=== PATIENT | female | born 1960 | race Caucasian/White ===

== ENCOUNTER 2019-09-29 12:57 | Emergency (ER) | payer BC, SELFPAY ==
[2019-09-29 13:21] VITALS: BP 135/64; PULSE 85; RESP 20; TEMP 36.8; O2SAT 97; BMI 26.4
--- NOTE | 2019-09-29 13:29 | HMH.EDUTC ---
[facility] [place] Clinical Impression: Viral syndrome Disposition: Home, Self-Care Condition on Discharge: Good Instructions: DI for Viral Syndrome, Preventing the Spread of Coronavirus Discharge Instructions Additional Instructions: Drink plenty of fluids. Take tylenol or ibuprofen for pain or fever. Follow up with your regular doctor. GO TO THE ER FOR ANY WORSENING SYMPTOMS FOLLOW THE DIRECTIONS ON THE COVID-19 HAND OUT THAT WE GAVE YOU REGARDING SELF-ISOLATION UNTIL YOU KNOW YOUR COVID-19 RESULTS Referrals: PCP,No [Primary Care Provider] - Forms: Work/School Release Time of Disposition: 13:32 Medical Decision Making - Medical Records Medical records reviewed: No: I reviewed the patient's medical records. - Carlos Alberto Inquiry Pt receiving controlled substance: No Vital Signs: 09/29/19 13:21 09/29/19 13:30 Temperature 98.2 F 98.2 F Temperature Source Oral Pulse Rate 85 Pulse Rate [Right Brachial] 85 Respiratory Rate 20 20 Blood Pressure 135/64 Blood Pressure [Right Arm] 135/64 Blood Pressure Mean [Right Arm] 87 Blood Pressure Source [Right Arm] Automatic Cuff Blood Pressure Position [Right Arm] Sitting 02 Sat by Pulse Oximetry 97 Oxygen Delivery Method Room Air - Lab Data Lab results reviewed: Yes: I reviewed the patient's lab results. Orders (Tests/Meds): ORDERS Category Date Time Status SARS-CoV-2, ISHMAEL ([place]) Stat Lab 09/29/19 13:25 Received [facility] [place] - General Stated complaint: request covid test Time Seen by Provider: 09/29/19 13:29 Mode of Arrival: Ambulatory Source of Information: Patient Limitations: No Limitations Description of Symptoms (Recalled from Triage Doc. by RN): PATIENT C/O NAUSEA, LETHARGY, AND NASAL/THROAT CONGESTION SINCE MONDAY NIGHT. DENIES FEVER, COUGH, OR ANY KNOWN SICK CONTACTS. REQUESTING COVID TEST HEENT Symptoms (Recalled from RN notes): Yes Resp Symptoms (Recalled from RN notes): No Skin Symptoms (Recalled from RN notes): No MS Symptoms (Recalled from RN notes): No Functional Status (Recalled from RN notes): WNL - History of Present Illness Provider Complaint: She reports a mild dry cough. She request to be tested for COVID-19. She denies any known exposure to COVID. She denies any fever, but she has also had some nausea at times over the past 2 days. - Related Data Home Medications Medication Instructions Recorded Confirmed Atorvastatin Calcium [Lipitor 40mg 40 mg PO HS 09/29/19 09/29/19 Tab] Budesonide [Pulmicort Flexhaler] 1 spray IH DAILY 09/29/19 09/29/19 Fluticasone Propionate [Flonase 2 spr NS DAILY 09/29/19 09/29/19 50mcg nasal spray 16gm] Loratadine [Claritin 10mg 10 mg PO DAILY 09/29/19 09/29/19 Tablet] Metformin HCl [Metformin HCl ER] 500 mg PO BID 09/29/19 09/29/19 Montelukast Sodium [Singulair 10mg 10 mg PO PM 09/29/19 09/29/19 tablet] Allergies Allergy/AdvReac Type Severity Reaction Status Date / Time No Known Allergies Allergy Verified 09/29/19 13:27 - Worker's Comp Is this a Worker's Comp case?: No [facility] History - Hepatitis A Screen Drug use history?: No High risk sexual behaviors?: No History of sexually transmitted infection?: No Currently employed?: No Childcare worker?: No Do you have indoor plumbing?: Yes Do you have electricity?: Yes Attestation statement:: This patient has been screened for Hepatitis A risk factors. I have reviewed the patient's past medical history: Yes Medical History: Reports:: Diabetes Mellitus Type 2 Laterality Cases: Bilateral: Tonsillectomy - Social History Alcohol Intake: never Occupational Status: other ROS Obtained: Yes All systems reviewed & no additional complaints - Constitutional Constitutional: Reports chills, Denies fever(s), Reports poor appetite, Reports malaise - Eyes Eyes: Denies eye discharge - ENT Ears, Nose, Mouth, and Throat: Reports as per HPI - Cardiovascular Cardiovascular: Denies chest pain -
[2019-09-29 13:30] VITALS: BP 135/64; PULSE 85; RESP 20; TEMP 36.8; O2SAT 97
[2019-09-30 08:38] LABS: Covid-19 Nasal PCR Sendout UK NOT DETECTED
== END 2019-09-29 13:35 | disposition home or self-care (01) ==
PROVIDERS: Emergency Provider Nurse Practitioner Family; PCP Family Medicine
DX: B34.9 Viral infection, unspecified (principal); Z03.818 Encounter for observation for suspected exposure to other biological agents ruled out
CPT/HCPCS: 36415; 99201; U0003

== ENCOUNTER 2019-12-09 13:48 | Emergency (ER) | payer BC, SELFPAY ==
[2019-12-09 14:17] VITALS: BP 142/90; PULSE 76; RESP 20; TEMP 36.9; O2SAT 98; BMI 27.3
[2019-12-09 14:18] LABS: Apearance,Urine Clear (Clear); Color,Urine Yellow (Yellow)
[2019-12-09 14:19] LABS: Bilirubin,Urine Negative (Negative); Blood, Urine Negative (Negative); Glucose,Urine (UA) Negative (Negative); Ketones,Urine Negative (Negative); PH,Urine 5.5 (5.0-8.5); Protein,Urine Negative (Negative); Specific Gravity, Urine 1.025 (1.005-1.030); UTC Leukocyte Esterase,Urine 1+ (Negative); UTC Nitrate,Urine Negative (Negative); Urobilinogen,Urine 0.2 EU/dl (0.2)
--- NOTE | 2019-12-09 14:26 | HMH.EDUTC ---
[facility] [place] Clinical Impression: UTI (urinary tract infection) Qualifiers: Urinary tract infection type: site unspecified Hematuria presence: without hematuria Qualified Code(s): N39.0 - Urinary tract infection, site not specified Disposition: Home, Self-Care Condition on Discharge: Good Instructions: Urinary Tract Infection, DI for Urinary Tract Infection (UTI), Nitrofurantoin Additional Instructions: *Increase fluids. Water not Soda or Tea *Start antibiotic immediately and be sure to take as ordered for the FULL length of time although you should start to see improvement over the next 48 hours *Pyridium as needed Remember this medication will turn your urine [place]. This is normal but it will stain what ever it gets on *You should not use Pyridium for more than 48 hours. If so , follow up with your primary physician to review urine culture and ensure that antibiotic is adequate for infection *Be SURE to follow up anytime for new or worsening symptoms with your family doctor. AND in 48 hours for urine culture results with your family doctor, if you do not have a doctor then you may call back to the [facility] for urine culture results and further treatment. We do recommend that you choose and establish care with a Primary Care Physician. AND follow up with them in 10-14 days to repeat UA to ensure infection is resolved and blood no longer present *Be sure to let your PCP know that we sent urine cultures from the [facility] so they can follow up to ensure that you area the on the correct antibiotic Call your doctor office and make appointment for 48 hours (2 days from today) to follow up and get the results of your urine culture and further treatment Follow up as directed Prescriptions: Nitrofurantoin Monohyd/M-Cryst [Macrobid 100 mg Capsule] 100 mg PO BID 10 Days #20 cap Transmission Status: Pending to [facility] # Phenazopyridine HCl [Pyridium 200mg Tablet] 200 pow PO TID #6 tab Transmission Status: Pending to [facility] # Referrals: Maria G Crawford MD [Primary Care Provider] - As needed Time of Disposition: 14:30 Medical Decision Making - Carlos Alberto Inquiry Pt receiving controlled substance: No Carlos Alberto was queried for this patient: No Vital Signs: 12/09/19 14:17 Temperature 98.4 F Temperature Source Oral Pulse Rate [Left Brachial] 76 Respiratory Rate 20 Blood Pressure [Left Arm] 142/90 H Blood Pressure Mean [Left Arm] 107 Blood Pressure Source [Left Arm] Automatic Cuff Blood Pressure Position [Left Arm] Sitting 02 Sat by Pulse Oximetry 98 Oxygen Delivery Method Room Air - Lab Data Lab results reviewed: Yes: I reviewed the patient's lab results. Lab Results 12/09/19 14:02: Urine Color Yellow, Urine Appearance Clear, Urine pH 5.5, Ur Specific Mcewen 1.025, Urine Protein Negative, Urine Glucose (UA) Negative, Urine Ketones Negative, Urine Blood Negative, Urine Nitrate Negative, Urine Bilirubin Negative, Urine Urobilinogen 0.2, Ur Leukocyte Esterase 1+ A [facility] [place] - General Stated complaint: burning,frequency Time Seen by Provider: 12/09/19 14:26 Mode of Arrival: Ambulatory Source of Information: Patient Limitations: No Limitations Description of Symptoms (Recalled from Triage Doc. by RN): PATIENT C/O SILVIA-AREA IRRITATION WITH FREQUENT URINATION X 1 WEEK HEENT Symptoms (Recalled from RN notes): No Resp Symptoms (Recalled from RN notes): No Skin Symptoms (Recalled from RN notes): No MS Symptoms (Recalled from RN notes): No Functional Status (Recalled from RN notes): WNL - History of Present Illness Provider Complaint: Patient states that he has been having burning with urination for about a week States that she took some over the counter azo and it helped for a few days but now symptoms are back and she knew she probably needed antibiotics so she came in to get checked out - Related Data Home Medications Medication Instructions Recorded Confirmed Atorvastatin Calcium
[2019-12-09 14:34] VITALS: BP 142/90; PULSE 76; RESP 20; TEMP 36.9; O2SAT 98
== END 2019-12-09 14:38 | disposition home or self-care (01) ==
PROVIDERS: Emergency Provider Nurse Practitioner; PCP Family Medicine
DX: N30.00 Acute cystitis without hematuria (principal); E11.9 Type 2 diabetes mellitus without complications; Z79.84 Long term (current) use of oral hypoglycemic drugs
CPT/HCPCS: 81003; 87086; 87088; 87186; 99201

== ENCOUNTER 2020-11-12 09:17 | Emergency (ER) | payer BC, SELFPAY ==
[2020-11-12 09:40] VITALS: BP 149/87; PULSE 94; RESP 18; TEMP 36.9; O2SAT 99; BMI 27.8
--- NOTE | 2020-11-12 10:21 | HMH.EDUTC ---
[facility] [place] Clinical Impression: Viral syndrome, Exposure to COVID-19 virus Disposition: Home, Self-Care Condition on Discharge: Good Instructions: DI for COVID-19 (Suspected or Confirmed ), Preventing the Spread of Coronavirus Discharge Instructions Additional Instructions: Drink plenty of fluids. Take tylenol for pain or fever. Return if you begin to have difficulty breathing. Follow up with your regular doctor. GO TO THE ER FOR ANY WORSENING SYMPTOMS Quarantine until you know the results of your covid-19 test. If it is positive, the health department should call you and give you further instructions about your length of Quarantine and other things. Notify your school or workplace of your results and follow their instructions regarding return to work/school. Referrals: Maria G Crawford MD [Primary Care Provider] - Time of Disposition: 10:24 Medical Decision Making - Medical Records Medical records reviewed: No: I reviewed the patient's medical records. - Carlos Alberto Inquiry Pt receiving controlled substance: No Vital Signs: 11/12/20 09:40 11/12/20 10:39 Temperature 98.4 F 98.4 F Temperature Source Oral Pulse Rate 94 H Pulse Rate [Right Brachial] 94 H Respiratory Rate 18 18 Blood Pressure 149/87 H Blood Pressure [Right Arm] 149/87 H Blood Pressure Mean [Right Arm] 107 Blood Pressure Source [Right Arm] Automatic Cuff Blood Pressure Position [Right Arm] Sitting 02 Sat by Pulse Oximetry 99 Oxygen Delivery Method Room Air [facility] [place] - General Stated complaint: covid test/sympoms Time Seen by Provider: 11/12/20 10:21 Mode of Arrival: Ambulatory Source of Information: Patient Limitations: No Limitations Description of Symptoms (Recalled from Triage Doc. by RN): PATIENT C/O COUGH, SINUS PRESSURE, SCRATCHY THROAT SINCE MONDAY. POSSIBLE SECONDARY EXPOSURE HEENT Symptoms (Recalled from RN notes): Yes Resp Symptoms (Recalled from RN notes): No Skin Symptoms (Recalled from RN notes): No MS Symptoms (Recalled from RN notes): No Functional Status (Recalled from RN notes): WNL - History of Present Illness Provider Complaint: She has been vaccinated against covid-19. she was exposed to at a [employer]. - Related Data Home Medications Medication Instructions Recorded Confirmed Atorvastatin Calcium [Lipitor 40mg 40 mg PO HS 09/29/19 12/09/19 Tab] Metformin HCl [Metformin HCl ER] 500 mg PO BID 09/29/19 12/09/19 Pantoprazole Sodium 20 mg PO DAILY 12/09/19 12/09/19 Previous Rx's Medication Instructions Recorded Nitrofurantoin Monohyd/M-Cryst 100 mg PO BID 10 Days #20 cap 12/09/19 [Macrobid 100 mg Capsule] Phenazopyridine HCl [Pyridium 200 pow PO TID #6 tab 12/09/19 200mg Tablet] Allergies Allergy/AdvReac Type Severity Reaction Status Date / Time No Known Allergies Allergy Verified 09/29/19 13:27 - Worker's Comp Is this a Worker's Comp case?: No [facility] History - Hepatitis A Screen Drug use history?: No High risk sexual behaviors?: No History of sexually transmitted infection?: No Currently employed?: No Childcare worker?: No Do you have indoor plumbing?: Yes Do you have electricity?: Yes Attestation statement:: This patient has been screened for Hepatitis A risk factors. I have reviewed the patient's past medical history: Yes Medical History: Reports:: Diabetes Mellitus Type 2 Laterality Cases: Bilateral: Tonsillectomy - Social History Alcohol Intake: never Occupational Status: other ROS Obtained: Yes All systems reviewed & no additional complaints - Constitutional Constitutional: Reports system reviewed and no additional complaints, except as docu - Eyes Eyes: Reports system reviewed and no additional complaints, except as docu - ENT Ears, Nose, Mouth, and Throat: Reports system reviewed and no additional complaints, except as docu - Cardiovascular Cardiovascular: Reports system reviewed and no additional compl
[2020-11-12 10:39] VITALS: BP 149/87; PULSE 94; RESP 18; TEMP 36.9; O2SAT 99
== END 2020-11-12 10:40 | disposition home or self-care (01) ==
PROVIDERS: Emergency Provider Nurse Practitioner Family; PCP Family Medicine
DX: B34.9 Viral infection, unspecified (principal); Z20.822 Contact with and (suspected) exposure to COVID-19
CPT/HCPCS: 99202; G0463; U0003

== ENCOUNTER 2020-12-23 09:01 | Emergency (ER) | payer BC, SELFPAY ==
[2020-12-23 09:26] VITALS: BP 157/76; PULSE 81; RESP 19; TEMP 36.8; O2SAT 98; BMI 27.6
[2020-12-23 09:32] VITALS: BP 157/76; PULSE 81; RESP 16; TEMP 36.8
--- NOTE | 2020-12-23 09:40 | HMH.EDUTC ---
[facility] [place]ression: Sinusitis Qualifiers: Sinusitis location: unspecified location Chronicity: acute Recurrence: non-recurrent Qualified Code(s): J01.90 - Acute sinusitis, unspecified Left otitis media Qualifiers: Otitis media type: suppurative Chronicity: acute Recurrence: non-recurrent Spontaneous tympanic membrane rupture: without spontaneous rupture Qualified Code(s): H66.002 - Acute suppurative otitis media without spontaneous rupture of ear drum, left ear Disposition: Home, Self-Care Condition on Discharge: Good Instructions: Sinusitis, DI for Sinusitis, Preventing the Spread of Coronavirus Discharge Instructions Additional Instructions: Drink plenty of fluids. Take tylenol or ibuprofen for pain or fever. Take the medications as directed. Follow up with your regular doctor. GO TO THE ER FOR ANY WORSENING SYMPTOMS Quarantine until you know the results of your covid-19 test. If it is positive, the health department should call you and give you further instructions about your length of Quarantine and other things. Notify your school or workplace of your results and follow their instructions regarding return to work/school. Prescriptions: methylPREDNISolone [Medrol] 4 mg PO DIRECTED 6 Days #21 packet Transmission Status: Received by [facility] # Benzonatate [Tessalon Perle 100mg Cap] 100 mg PO TIDP PRN #30 cap PRN Reason: Cough Transmission Status: Received by [facility] # Azithromycin [Z-David 250mg Tab*] 250 mg PO UD DOSE PK #6 tab Transmission Status: Received by [facility] # Referrals: Maria G Crawford MD [Primary Care Provider] - Forms: Work/School Release Time of Disposition: 10:43 Medical Decision Making - Medical Records Medical records reviewed: No: I reviewed the patient's medical records. - Carlos Alberto Inquiry Pt receiving controlled substance: No Vital Signs: 12/23/20 09:26 12/23/20 09:32 Temperature 98.2 F 98.2 F Temperature Source Oral Pulse Rate 81 Pulse Rate [Left] 81 Respiratory Rate 19 16 Blood Pressure 157/76 H Blood Pressure [Right Arm] 157/76 H Blood Pressure Mean [Right Arm] 103 02 Sat by Pulse Oximetry 98 Orders (Tests/Meds): ED MEDICATIONS Discontinued Medications Generic Name Dose Route Start Last Admin Trade Name Freq PRN Reason Stop Dose Admin Ceftriaxone Sodium 1 gm 12/23/20 09:56 12/23/20 10:04 Ceftriaxone 1gm Vial IM 12/23/20 09:57 1 gm ONCE ONE Administration Lidocaine HCl 0 ml 12/23/20 09:56 12/23/20 10:04 Lidocaine 1% 5ml Pf Vial IM 12/23/20 09:57 2.5 ml ONCE ONE Administration Methylprednisolone Sodium Succinate 125 mg 12/23/20 09:56 12/23/20 10:04 Methylprednisolone Sod Succ 125mg Vial IM 12/23/20 09:57 125 mg ONCE ONE Administration [facility] [place] - General Stated complaint: covid symptoms/possible sinus infection Time Seen by Provider: 12/23/20 09:40 Mode of Arrival: Ambulatory Source of Information: Patient Limitations: No Limitations Description of Symptoms (Recalled from Triage Doc. by RN): pt thinks she has a sinus infection. pt is having facial pain and pressure predominantly on the L side. HEENT Symptoms (Recalled from RN notes): Yes (facial pain/pressure) Resp Symptoms (Recalled from RN notes): No Skin Symptoms (Recalled from RN notes): No MS Symptoms (Recalled from RN notes): No Functional Status (Recalled from RN notes): na - History of Present Illness Provider Complaint: She c/o left sided facial pressure, puffiness below her left eye, left ear pain and soreness of the left side of her throat for the past 1 week. He has post nasal drainage also and a mild cough, but no shortness of breath or chest pain. - Related Data Home Medications Medication Instructions Recorded Confirmed Atorvastatin Calcium [Lipitor 40mg 40 mg PO HS 09/29/19 12/09/19 Tab] Metformin HCl [Metformin HCl ER] 500 mg PO B
== END 2020-12-23 10:54 | disposition home or self-care (01) ==
PROVIDERS: Emergency Provider Nurse Practitioner Family; PCP Family Medicine
DX: J01.90 Acute sinusitis, unspecified (principal); U07.1 COVID-19; H66.002 Acute suppurative otitis media without spontaneous rupture of ear drum, left ear; E11.9 Type 2 diabetes mellitus without complications
CPT/HCPCS: 96372; 99202; C9803; G0463; U0003; U0005

== ENCOUNTER 2021-04-19 09:52 | Emergency (ER) | payer BC, SELFPAY ==
[2021-04-19 09:53] VITALS: BP 140/80; PULSE 95; RESP 14; TEMP 36.8; O2SAT 97; BMI 27.8
--- NOTE | 2021-04-19 09:56 | XR_ITS ---
FINAL REPORT CLINICAL HISTORY: fall, LT KNEE PAIN FINDINGS: LEFT KNEE: Three views of the left knee were obtained. There is no acute fracture or dislocation. Visualized joint spaces are normally aligned. There is no joint effusion. Soft tissues are unremarkable. IMPRESSION: No acute bony abnormality. Reviewed, Interpreted and Dictated by Bassem Cohen III, MD Transcribed by Cornelius Pena Authenticated by Bassem Cohen III, MD on 04/19/2021 11:28:24 AM [facility]
--- NOTE | 2021-04-19 10:58 | HMH.EDGENADL ---
ED Disposition Clinical Impression: Left knee sprain Qualifiers: Encounter type: initial encounter Involved ligament of knee: other ligament Qualified Code(s): S83.8X2A - Sprain of other specified parts of left knee, initial encounter Disposition: Home, Self-Care Condition on Discharge: Good Additional Instructions: follow up Ortho if not better Referrals: Maria G Crawford MD [Primary Care Provider] - - Critical Care Critical Care Time: No Attestation: On 04/19/21, the high probability of a clinically significant, sudden or life threatening deterioration of the following system(s) required my full and direct attention, intervention and personal management. The time I documented below is in addition to time spent performing reported procedures but includes the following listed in this critical care notation. Medical Decision Making - Medical Records Medical records reviewed: Yes: I reviewed the patient's medical records. - Carlos Alberto Inquiry Pt receiving controlled substance: No Vital Signs: 04/19/21 09:53 04/19/21 11:04 Temperature 98.2 F Temperature Source Oral Pulse Rate 90 Pulse Rate [Right Radial] 95 H Respiratory Rate 14 Blood Pressure 144/80 H Blood Pressure [Right Arm] 140/80 Blood Pressure Mean [Right Arm] 100 Blood Pressure Source Automatic Cuff Blood Pressure Source [Right Arm] Automatic Cuff Blood Pressure Position Sitting Blood Pressure Position [Right Arm] Sitting 02 Sat by Pulse Oximetry 97 96 Oxygen Delivery Method Room Air Room Air Orders (Tests/Meds): ORDERS Category Date Time Status Knee XR left 3 views [XR knee LT 3V] Stat Exams 04/19/21 09:56 Taken General Adult HPI - General Chief complaint: PAIN Stated complaint: AO fall 2/6 lt knee injury Time Seen by Provider: 04/19/21 10:40 Mode of Arrival: Ambulatory Limitations: No Limitations Description of Symptoms (Recalled from ER Triage Doc. by RN): Pt c/o Lt knee pain following a fall on ice last night approx 2129 - History of Present Illness HPI narrative: left knee pain twisting injury yesterday Onset (ago): day(s) Radiation: non-radiation Severity: moderate Consistency: constant Relieving factors: immobilization Exacerbating factors: movement Associated symptoms: denies other symptoms - Related Data Home Medications Medication Instructions Recorded Confirmed Atorvastatin Calcium [Lipitor 40mg 40 mg PO HS 09/29/19 12/09/19 Tab] Metformin HCl [Metformin HCl ER] 500 mg PO BID 09/29/19 12/09/19 Pantoprazole Sodium 20 mg PO DAILY 12/09/19 12/09/19 Previous Rx's Medication Instructions Recorded Nitrofurantoin Monohyd/M-Cryst 100 mg PO BID 10 Days #20 cap 12/09/19 [Macrobid 100 mg Capsule] Phenazopyridine HCl [Pyridium 200 pow PO TID #6 tab 12/09/19 200mg Tablet] Azithromycin [Z-David 250mg Tab*] 250 mg PO UD DOSE PK #6 tab 12/23/20 Benzonatate [Tessalon Perle 100mg 100 mg PO TIDP PRN #30 cap 12/23/20 Cap] methylPREDNISolone [Medrol] 4 mg PO DIRECTED 6 Days #21 12/23/20 packet Allergies Allergy/AdvReac Type Severity Reaction Status Date / Time No Known Allergies Allergy Verified 09/29/19 13:27 [facility] History - Hepatitis A Screen Drug use history?: No High risk sexual behaviors?: No History of sexually transmitted infection?: No Currently employed?: No Childcare worker?: No Do you have indoor plumbing?: Yes Do you have electricity?: Yes Attestation statement:: This patient has been screened for Hepatitis A risk factors. Medical History: Reports:: Diabetes Mellitus Type 2 Laterality Cases: Bilateral: Tonsillectomy - Social History Alcohol Intake: never Occupational Status: other ROS Obtained: Yes All systems reviewed & no additional complaints Physical Exam - General General appearance: alert, in no apparent distress - Respiratory Respiratory exam: Present: normal lung sounds bilaterally. Absent: respiratory distress, wheezes - Car
[2021-04-19 11:04] VITALS: BP 144/80; PULSE 90; O2SAT 96
[2021-04-19 11:36] VITALS: BP 144/80; PULSE 90; RESP 14; TEMP 36.8; O2SAT 97
== END 2021-04-19 11:38 | disposition home or self-care (01) ==
PROVIDERS: Emergency Provider Emergency Medicine; PCP Family Medicine
DX: S83.8X2A Sprain of other specified parts of left knee, initial encounter (principal); E11.9 Type 2 diabetes mellitus without complications; Z79.899 Other long term (current) drug therapy; Z79.84 Long term (current) use of oral hypoglycemic drugs; W00.0XXA Fall on same level due to ice and snow, initial encounter
CPT/HCPCS: 73562; 99282

== ENCOUNTER 2021-06-03 09:00 | Emergency (ER) | payer SELFPAY ==
[2021-06-03 09:10] VITALS: BP 129/78; PULSE 86; RESP 18; TEMP 36.8; O2SAT 98; BMI 26.6
[2021-06-03 09:43] VITALS: BP 129/78; PULSE 86; RESP 18; TEMP 36.8; O2SAT 98
--- NOTE | 2021-06-03 09:47 | HMH.EDUTC ---
[facility] [place] Clinical Impression: Diarrhea Qualifiers: Diarrhea type: unspecified type Qualified Code(s): R19.7 - Diarrhea, unspecified Disposition: Home, Self-Care Condition on Discharge: Good Instructions: Diarrhea (Alternative Therapy), Diarrhea Additional Instructions: Drink extra fluids with and between meals. If you have difficulty drinking, try very small amounts of water or suck on ice chips. ? Avoid fruit juices, as these do not replace minerals and can actually increase diarrhea. ? Children and adults can use sports drinks to replenish electrolytes. Younger children and infants should use products formulated for children, like oral rehydration solutions. ? Eat food in small amounts and let your stomach recover. ? Get lots of rest. You may feel tired or weak. ? No greasy or fried foods for the next 24-48 hours BRAT diet Bananas Rice Apples and [place] ? Make sure to drink plenty of liquids ? Return if needed ? Straight to ER if any life threatening symptoms ? You was given an outpatient order for diarrhea panel, please collect specimen and bring back to outpatient lab then call back to the [facility] or follow up with family doctor for results ? Follow up with family doctor in the next 48-72 hours if no improvement or any worsening of symptoms Referrals: Maria G Crawford MD [Primary Care Provider] - As needed Forms: Work/School Release Medical Decision Making - Carlos Alberto Inquiry Pt receiving controlled substance: No Carlos Alberto was queried for this patient: No Vital Signs: 06/03/21 09:10 06/03/21 09:43 Temperature 98.3 F 98.3 F Temperature Source Oral Pulse Rate 86 Pulse Rate [Right Brachial] 86 Respiratory Rate 18 18 Blood Pressure 129/78 Blood Pressure [Right Arm] 129/78 Blood Pressure Mean [Right Arm] 95 Blood Pressure Source [Right Arm] Automatic Cuff Blood Pressure Position [Right Arm] Sitting 02 Sat by Pulse Oximetry 98 Oxygen Delivery Method Room Air [facility] [place] - General Stated complaint: vomiting, diarrhea Time Seen by Provider: 06/03/21 09:48 Mode of Arrival: Ambulatory Source of Information: Patient Limitations: No Limitations Description of Symptoms (Recalled from Triage Doc. by RN): PATIENT C/O VOMITING AND DIARRHEA SINCE MONDAY HEENT Symptoms (Recalled from RN notes): No Resp Symptoms (Recalled from RN notes): No Skin Symptoms (Recalled from RN notes): No MS Symptoms (Recalled from RN notes): No Functional Status (Recalled from RN notes): WNL - History of Present Illness Provider Complaint: Patient state that she started on Monday with Vomiting and diarrhea States that Monday her vomiting stopped but she has continued to have diarrhea States that she took Immodium yesterday and it helped some with diarrhea but then this morning as she got up to get ready for work she was having some diarrhea again so she came in - Related Data Home Medications Medication Instructions Recorded Confirmed Atorvastatin Calcium [Lipitor 40mg 40 mg PO HS 09/29/19 12/09/19 Tab] Metformin HCl [Metformin HCl ER] 500 mg PO BID 09/29/19 12/09/19 Pantoprazole Sodium 20 mg PO DAILY 12/09/19 12/09/19 Previous Rx's Medication Instructions Recorded Nitrofurantoin Monohyd/M-Cryst 100 mg PO BID 10 Days #20 cap 12/09/19 [Macrobid 100 mg Capsule] Phenazopyridine HCl [Pyridium 200 pow PO TID #6 tab 12/09/19 200mg Tablet] Azithromycin [Z-David 250mg Tab*] 250 mg PO UD DOSE PK #6 tab 12/23/20 Benzonatate [Tessalon Perle 100mg 100 mg PO TIDP PRN #30 cap 12/23/20 Cap] methylPREDNISolone [Medrol] 4 mg PO DIRECTED 6 Days #21 12/23/20 packet Allergies Allergy/AdvReac Type Severity Reaction Status Date / Time No Known Allergies Allergy Verified 09/29/19 13:27 - Worker's Comp Is this a Worker's Comp case?: No [facility] History - Hepatitis A Screen Drug use history?: No High risk sexual behaviors?: No History of sexually transmitted infection?: No Currently employed?: No [employer]
== END 2021-06-03 09:50 | disposition home or self-care (01) ==
PROVIDERS: Emergency Provider Nurse Practitioner; PCP Family Medicine
DX: R19.7 Diarrhea, unspecified (principal); R11.10 Vomiting, unspecified; E11.9 Type 2 diabetes mellitus without complications; Z79.52 Long term (current) use of systemic steroids; Z79.84 Long term (current) use of oral hypoglycemic drugs; Z79.899 Other long term (current) drug therapy
CPT/HCPCS: 99212; G0463

== ENCOUNTER 2021-07-04 09:33 | Emergency (ER) | payer OTHER, SELFPAY ==
[2021-07-04 10:14] VITALS: BP 143/68; PULSE 95; RESP 20; TEMP 37.2; O2SAT 96; BMI 28.5
--- NOTE | 2021-07-04 10:36 | HMH.EDUTC ---
[facility] [place] Impression: Sinusitis Qualifiers: Sinusitis location: frontal Chronicity: acute Recurrence: non-recurrent Qualified Code(s): J01.10 - Acute frontal sinusitis, unspecified Disposition: Home, Self-Care Condition on Discharge: Good Instructions: DI for Sinusitis Additional Instructions: Drink plenty of fluids. Take tylenol or ibuprofen for pain or fever. Take the medications as directed. Follow up with your regular doctor. GO TO THE ER FOR ANY WORSENING SYMPTOMS Prescriptions: methylPREDNISolone [Medrol] 4 mg PO DIRECTED 6 Days #21 packet Transmission Status: Received by [id number] Azithromycin [Z-David 250mg Tab*] 250 mg PO UD DOSE PK #6 tab Transmission Status: Received by [id number] Referrals: Provider,Referral, [Primary Care Provider] - Time of Disposition: 11:12 Medical Decision Making - Medical Records Medical records reviewed: No: I reviewed the patient's medical records. - Carlos Alberto Inquiry Pt receiving controlled substance: No Vital Signs: 07/04/21 10:14 07/04/21 11:12 Temperature 98.9 F 98.9 F Temperature Source Oral Pulse Rate 95 H Pulse Rate [Left] 95 H Respiratory Rate 20 20 Blood Pressure 143/68 H Blood Pressure [Right Arm] 143/68 H Blood Pressure Mean [Right Arm] 93 02 Sat by Pulse Oximetry 96 - Lab Data Lab results reviewed: Yes: I reviewed the patient's lab results. Lab Results 07/04/21 10:19: Group A Strep Rapid Negative Orders (Tests/Meds): ORDERS Category Date Time Status Strep Screen Confirmation Stat Micro 07/04/21 10:19 [place] [facility] [place] - General Stated complaint: sore throat, ear pain, chest congestion Time Seen by Provider: 07/04/21 10:36 Mode of Arrival: Ambulatory Source of Information: Patient Limitations: No Limitations Description of Symptoms (Recalled from Triage Doc. by RN): pt c/o a sore throat, bilateral ear pain, chest congetsion and a productive cough with green/yellow sputum. x1wk HEENT Symptoms (Recalled from RN notes): Yes Resp Symptoms (Recalled from RN notes): Yes Skin Symptoms (Recalled from RN notes): No MS Symptoms (Recalled from RN notes): No Functional Status (Recalled from RN notes): wnl - History of Present Illness Provider Complaint: She c/o 3 days or worsening sinus congestion. She has had chilling but no documented fever. - Related Data Home Medications Medication Instructions Recorded Confirmed Atorvastatin Calcium [Lipitor 40mg 40 mg PO HS 09/29/19 12/09/19 Tab] Metformin HCl [Metformin HCl ER] 500 mg PO BID 09/29/19 12/09/19 Pantoprazole Sodium 20 mg PO DAILY 12/09/19 12/09/19 Previous Rx's Medication Instructions Recorded Nitrofurantoin Monohyd/M-Cryst 100 mg PO BID 10 Days #20 cap 12/09/19 [Macrobid 100 mg Capsule] Phenazopyridine HCl [Pyridium 200 pow PO TID #6 tab 12/09/19 200mg Tablet] Azithromycin [Z-David 250mg Tab*] 250 mg PO UD DOSE PK #6 tab 12/23/20 Benzonatate [Tessalon Perle 100mg 100 mg PO TIDP PRN #30 cap 12/23/20 Cap] methylPREDNISolone [Medrol] 4 mg PO DIRECTED 6 Days #21 12/23/20 packet Azithromycin [Z-David 250mg Tab*] 250 mg PO UD DOSE PK #6 tab 07/04/21 methylPREDNISolone [Medrol] 4 mg PO DIRECTED 6 Days #21 07/04/21 packet Allergies Allergy/AdvReac Type Severity Reaction Status Date / Time amoxicillin [From Augmentin] Allergy Verified 07/04/21 10:24 clavulanic acid Allergy Verified 07/04/21 10:24 [From Augmentin] risedronate sodium Allergy Verified 07/04/21 10:24 [From Actonel] - Worker's Comp Is this a Worker's Comp case?: No [facility] History - Hepatitis A Screen Drug use history?: No High risk sexual behaviors?: No History of sexually transmitted infection?: No Currently employed?: No Childcare worker?: No Do you have indoor plumbing?: Yes Do you have electricity?: Yes Attestation statement:: This patient has been screened for Hepatitis A risk fac
[2021-07-04 10:41] LABS: Strep Scrn Group A (Rapid) Negative (Negative)
[2021-07-04 11:12] VITALS: BP 143/68; PULSE 95; RESP 20; TEMP 37.2
== END 2021-07-04 11:17 | disposition home or self-care (01) ==
PROVIDERS: Emergency Provider Nurse Practitioner Family
DX: J01.10 Acute frontal sinusitis, unspecified (principal); E11.9 Type 2 diabetes mellitus without complications
CPT/HCPCS: 87430; 99212; G0463

== ENCOUNTER 2021-08-09 11:58 | Emergency (ER) | payer OTHER, SELFPAY ==
--- NOTE | 2021-08-09 13:19 | HMH.EDGENADL ---
ED Disposition Clinical Impression: Right foot pain Disposition: Home, Self-Care Condition on Discharge: Good Referrals: Baldo Rolon MD [Primary Care Provider] - - Critical Care Critical Care Time: No Attestation: On , the high probability of a clinically significant, sudden or life threatening deterioration of the following system(s) required my full and direct attention, intervention and personal management. The time I documented below is in addition to time spent performing reported procedures but includes the following listed in this critical care notation. Medical Decision Making - Medical Records Medical records reviewed: Yes: I reviewed the patient's medical records. - Carlos Alberto Inquiry Pt receiving controlled substance: No Vital Signs: 08/09/21 13:25 08/09/21 14:00 08/09/21 14:30 Temperature 98.7 F Temperature Source Oral Pulse Rate 80 81 Pulse Rate [Right Radial] 89 Respiratory Rate 18 16 16 Blood Pressure 125/66 121/56 L Blood Pressure [Right Arm] 135/65 Blood Pressure Mean 89 77 Blood Pressure Mean [Right Arm] 88 Blood Pressure Source [Right Arm] Automatic Cuff Blood Pressure Position [Right Arm] Sitting 02 Sat by Pulse Oximetry 100 100 98 Oxygen Delivery Method Room Air - Lab Data Lab results reviewed: Yes: I reviewed the patient's lab results. Orders (Tests/Meds): ED MEDICATIONS Discontinued Medications Generic Name Dose Route Start Last Admin Trade Name Juan Aq PRN Reason Stop Dose Admin Acetaminophen 1,000 mg 08/09/21 13:57 08/09/21 14:08 Acetaminophen 500mg Tab PO 08/09/21 13:58 1,000 mg ONCE ONE Administration Oxycodone HCl 5 mg 08/09/21 13:58 08/09/21 14:09 Oxycodone 5mg Immediate Release Tablet PO 08/09/21 13:59 Not Given ONCE ONE Medical Decision Narrative: Patient is a 52-year-old female presenting with a chief complaint of right toe pain. Differential diagnosis includes, but is not limited to, fracture, dislocation, contusion, other. Initial exam, patient is hemodynamically stable nontoxic-appearing. She was evaluated with x-ray of the right foot and treated for pain with p.o. Tylenol and p.o. oxycodone. X-rays negative for acute findings. Presentation is consistent with contusion of the right toe. She was provided a walking boot for comfort, counseled on supportive care at home and discharged in stable condition. General Adult HPI - General Stated complaint: rt big toe pain Time Seen by Provider: 08/09/21 13:20 - History of Present Illness HPI narrative: Rose is a 60-year-old presenting with a chief complaint of right toe pain. Patient states she injured her foot yesterday evening. Her pain was relieved with Tylenol and she was able to sleep but continues to have pain, swelling and bruising today. Concern for underlying fracture. Did not fall, hit her head and does not report any other concerns or injuries. - Related Data Home Medications Medication Instructions Recorded Confirmed Atorvastatin Calcium [Lipitor 40mg 40 mg PO HS 09/29/19 12/09/19 Tab] Metformin HCl [Metformin HCl ER] 500 mg PO BID 09/29/19 12/09/19 Pantoprazole Sodium 20 mg PO DAILY 12/09/19 12/09/19 Previous Rx's Medication Instructions Recorded Nitrofurantoin Monohyd/M-Cryst 100 mg PO BID 10 Days #20 cap 12/09/19 [Macrobid 100 mg Capsule] Phenazopyridine HCl [Pyridium 200 pow PO TID #6 tab 12/09/19 200mg Tablet] Azithromycin [Z-David 250mg Tab*] 250 mg PO UD DOSE PK #6 tab 12/23/20 Benzonatate [Tessalon Perle 100mg 100 mg PO TIDP PRN #30 cap 12/23/20 Cap] methylPREDNISolone [Medrol] 4 mg PO DIRECTED 6 Days #21 12/23/20 packet Azithromycin [Z-David 250mg Tab*] 250 mg PO UD DOSE PK #6 tab 07/04/21 methylPREDNISolone [Medrol] 4 mg PO DIRECTED 6 Days #21 07/04/21 packet Allergies Allergy/AdvReac Type Severity Reaction Status Date / Time amoxicillin [From Augmentin] Allergy Verified 07/04/21 10:2
[2021-08-09 13:25] VITALS: BP 135/65; PULSE 89; RESP 18; TEMP 37.1; O2SAT 100; BMI 27.6
--- NOTE | 2021-08-09 13:37 | XR_ITS ---
PROCEDURE INFORMATION: Exam: XR Left Foot Exam date and time: 08/09/2021 1:50 PM Age: 60 years old Clinical indication: Pain; Foot; Right; Additional info: Tripped on sheet last night TECHNIQUE: Imaging protocol: XR Left foot. Views: 1 or 2 views. COMPARISON: CR XR KNEE LT 3V 04/19/2021 10:03 AM FINDINGS: Bones/joints: No evidence of acute osseous injury. Soft tissues: Mild soft tissue swelling dorsal aspect of the forefoot. IMPRESSION: No evidence of acute osseous injury.
--- NOTE | 2021-08-09 13:53 | PC.NURSE ---
rad at BS for portable xray
[2021-08-09 14:00] VITALS: BP 125/66; PULSE 80; RESP 16; O2SAT 100
[2021-08-09 14:30] VITALS: BP 121/56; PULSE 81; RESP 16; O2SAT 98
[2021-08-09 16:43] VITALS: BP 112/74; PULSE 65; RESP 16; TEMP 36.6; O2SAT 98
== END 2021-08-09 16:44 | disposition home or self-care (01) ==
PROVIDERS: Emergency Provider Emergency Medicine; PCP Internal Medicine Adolescent Medicine
DX: M79.674 Pain in right toe(s) (principal); M79.671 Pain in right foot; E11.9 Type 2 diabetes mellitus without complications; Z79.52 Long term (current) use of systemic steroids; Z79.84 Long term (current) use of oral hypoglycemic drugs; Z79.899 Other long term (current) drug therapy; Z88.0 Allergy status to penicillin; Z88.1 Allergy status to other antibiotic agents; Z88.3 Allergy status to other anti-infective agents; Z88.8 Allergy status to other drugs, medicaments and biological substances
CPT/HCPCS: 73620; 99283

== ENCOUNTER → 2022-06-15 10:39 | Outpatient (CLI) | payer OTHER, SELFPAY ==
[2022-06-15 11:38] LABS: Basophils # 0.1 K/mm3 (0-0.2); Basophils % 0.9 % (0.1-2.0); Eosinophils # 0.1 K/mm3 (0.0-0.4); Eosinophils % 0.6 % (0.1-12.0); Hemoglobin 12.9 g/dL (12.2-16.2); Lymphocytes # 3.9 K/mm3 (0.7-4.5); Mean Corpuscular HGB Conc 32.3 g/dL (31.8-35.4); Mean Corpuscular Hemoglobin 28.9 pg (27.0-31.2); Mean Corpuscular Volume 89.6 fl (81-99); Mean Platelet Volume 8.4 fl (7.4-10.4); Monocytes # 0.6 K/mm3 (0.1-1.0); Neutrophils # 5.5 K/mm3 (1.8-7.8); Neutrophils % 54.5 % (37.0-80.0); Platelet Count 363 K/mm3 (142-424); Red Blood Count 4.47 M/mm3 (4.20-5.40); Red Cell Distribution Width 13.9 % (11.5-17.5); White Blood Count 10.1 K/mm3 (4.8-10.8)
[2022-06-15 12:12] LABS: Chloride 100 mmol/L (98-107); Potassium 3.5 mmoL/L (3.5-5.1); Sodium 139 mmol/L (136-145)
[2022-06-15 12:34] LABS: Free T4 (Free Thyroxine) 0.97 ng/dl (0.78-2.19)
[2022-06-15 12:48] LABS: Thyroid Stimulating Hormone 1.88 uIU/mL (0.465-4.68)
[2022-06-15 12:52] LABS: Ferritin 16.5 ng/ml (11.1-264)
[2022-06-15 17:06] LABS: Alanine Aminotransferase 28 U/L (12-78); Albumin Level 4.2 g/dl (3.5-5.0); Albumin/Globulin Ratio 1.9 (1.1-1.8); Alkaline Phosphatase 78 U/L (38-126); Anion Gap 12.5 mEq/L (5-15); Aspartate Amino Transferase 25 U/L (14-36); Bilirubin,Total 0.4 mg/dl (0.2-1.3); Blood Urea Nitrogen 17 mg/dl (7-17); Carbon Dioxide 30 mmol/L (22.0-30.0); Estimated Glomerular Filt Rate 86 ml/min (>60); GFR (African American) 104 ML/MIN (>60); Globulin 2.2 g/dL (1.3-3.2); Glucose 89 mg/dl (74-100); Total Protein,Serum 6.4 g/dl (6.3-8.2)
[2022-06-15 17:15] LABS: Total Iron Binding Capacity 344 ug/dL (265-497)
[2022-06-15 18:15] LABS: Vitamin B12 850 pg/mL (239-931)
[2022-06-15 18:22] LABS: Folate > 20.00 ng/mL
[2022-06-15 21:22] LABS: Iron 74 ug/dL (37-170)
[2022-06-16 10:36] LABS: Sex Hormone Binding Globulin 25.9 nmol/L (17.3-125.0)
[2022-06-16 11:42] LABS: DHEA-Sulfate 15.3 ug/dL (29.4-220.5); Testosterone,Total <3 ng/dL (4-50)
[2022-06-17 04:13] LABS: Zinc 66 ug/dL (44-115)
[2022-06-19 03:58] LABS: Testosterone,Free 0.3 pg/mL (0.0-4.2)
== END ==
LOC: LAB 10:40
PROVIDERS: PCP Internal Medicine Adolescent Medicine; Visit Provider Nurse Practitioner Family
DX: L65.9 Nonscarring hair loss, unspecified (principal)
CPT/HCPCS: 36415; 80053; 82607; 82626; 82728; 82746; 83540; 83550; 84270; 84402; 84403; 84439; 84443; 84630; 85025

== ENCOUNTER → 2022-06-30 09:48 | Outpatient (CLI) | payer OTHER, SELFPAY ==
--- NOTE | 2022-06-30 09:53 | MM_ITS ---
PROCEDURE INFORMATION: Exam: MG Bilateral Screening 3D Mammography Exam date and time: 06/30/2022 9:53 AM Age: 61 years old Clinical indication: Screening mammogram TECHNIQUE: Imaging protocol: Bilateral Screening tomosynthesis and 2D mammography including computer-aided detection (CAD) when performed. COMPARISON: No relevant prior studies available. FINDINGS: MAMMOGRAPHY: Breast composition: There are scattered areas of fibroglandular density. Mass: None. Architectural distortion: No new or suspicious architectural distortion. Calcifications: No new or suspicious calcifications are present Asymmetric density: No new or suspicious asymmetric density is present Skin thickening: None. Axillary adenopathy: None. IMPRESSION: No mammographic evidence of malignancy. Recommend annual screening mammography unless otherwise clinically indicated. ASSESSMENT: BI-RADS category 1: Negative
== END ==
PROVIDERS: PCP Internal Medicine Adolescent Medicine; Visit Provider Nurse Practitioner Family
DX: Z12.31 Encounter for screening mammogram for malignant neoplasm of breast (principal)
CPT/HCPCS: 77063; 77067

== ENCOUNTER 2022-08-14 10:56 | Emergency (ER) | payer OTHER, SELFPAY ==
[2022-08-14 10:57] VITALS: BP 132/63; PULSE 94; RESP 18; TEMP 37.2; O2SAT 98; BMI 26.2
--- NOTE | 2022-08-14 11:14 | EXP.UTC ---
Discharge Plan Disposition Patient Disposition: Home, Self-Care Condition: Good Prescriptions Prescriptions: New diphenhydramine HCl [Diphenhydramine HCl] 25 mg capsule 25 mg PO Q6HP PRN (Reason: Itching) Qty: 30 0RF methylprednisolone 4 mg Tablets,Dose Pack 4 mg PO DIRECTED Qty: 21 0RF No Action azithromycin 250 MG tablet 250 mg PO UD DOSE PK Qty: 6 0RF Rx Instructions: Take two (2) tablets today, then one (1) tablet days #2 thru #5 benzonatate 100 MG capsule 100 mg PO TIDP PRN (Reason: Cough) Qty: 30 0RF methylprednisolone 4 MG tablets,dose pack 4 mg PO DIRECTED 6 Days Qty: 21 0RF azithromycin 250 MG tablet 250 mg PO UD DOSE PK Qty: 6 0RF Rx Instructions: Take two (2) tablets today, then one (1) tablet days #2 thru #5 methylprednisolone 4 MG tablets,dose pack 4 mg PO DIRECTED 6 Days Qty: 21 0RF atorvastatin 40 MG tablet 40 mg PO HS metformin 500 MG tablet extended release 24 hr 500 mg PO BID pantoprazole 20 mg tablet,delayed release (DR/EC) 20 mg PO DAILY Label Comments: TAKE 1 TABLET BY MOUTH DAILY phenazopyridine 200 MG tablet 200 pow PO TID Qty: 6 0RF nitrofurantoin monohyd/m-cryst 100 MG capsule 100 mg PO BID 10 Days Qty: 20 0RF Referrals Follow up/Referrals: Livan Borja MD [Primary Care Provider] - See instructions Activity Restrictions/Add. Instructions Additional Instructions/Restrictions: Try to identify and avoid contact with the offending substance. Don't start the oral steroids until tomorrow. The diphenhydramine (benedryl) will make you drowsy, so don't drive or operate heavy machinery after taking it. Follow up with your regular doctor. GO TO THE ER FOR ANY WORSENING SYMPTOMS OR CONCERNS Clinical Impressions Clinical Impression: Allergic reaction, Contact dermatitis Instructions Patient Instructions: DI for General Allergic Reactions, Methylprednisolone Injection Discharge ED Provider: Baldo Griffin [facility] General Stated complaint: rash Mode of Arrival: Ambulatory Source of Information: Patient Limitations: No Limitations Time Seen by Provider: 08/14/22 11:14 HEENT Symptoms (Recalled from RN notes): No Resp Symptoms (Recalled from RN notes): No Skin Symptoms (Recalled from RN notes): Yes MS Symptoms (Recalled from RN notes): No Functional Status (Recalled from RN notes): wnl History of Present Illness Provider Complaint: Patient states that she thinks she had an allgeric reation to sunblock. Complaint of rash and asthma problems. Related Data Home Medications Medication Instructions Recorded Confirmed atorvastatin 40 mg tablet 40 mg PO HS Cholesterol 09/29/19 12/09/19 metformin 500 mg tablet,extended 500 mg PO BID Diabetes 09/29/19 12/09/19 release 24 hr pantoprazole 20 mg tablet,delayed 20 mg PO DAILY GERD 12/09/19 12/09/19 release Previous Rx's Medication Instructions Recorded nitrofurantoin 100 mg PO BID 10 days #20 caps 12/09/19 monohydrate/macrocrystals 100 mg capsule phenazopyridine 200 mg tablet 200 pow PO TID #6 tabs 12/09/19 azithromycin 250 mg tablet 250 mg PO UD DOSE PK #6 tabs 12/23/20 benzonatate 100 mg capsule 100 mg PO TIDP PRN Cough #30 caps 12/23/20 methylprednisolone 4 mg tablets in 4 mg PO DIRECTED 6 days #21 12/23/20 a dose pack packets azithromycin 250 mg tablet 250 mg PO UD DOSE PK #6 tabs 07/04/21 methylprednisolone 4 mg tablets in 4 mg PO DIRECTED 6 days #21 07/04/21 a dose pack packets diphenhydramine HCl 25 mg capsule 25 mg PO Q6HP PRN Itching #30 caps 08/14/22 methylprednisolone 4 mg tablets in 4 mg PO DIRECTED #21 tabs 08/14/22 a dose pack Allergies Allergy/AdvReac Type Severity Reaction Status Date / Time alendronate sodium Allergy Verified 08/14/22 11:15 [From Fosamax] amoxicillin [From Augmentin] Allergy Verified 07/04/21 10:24 clavulanic acid Allergy Verified 07/04/21 10:24 [From Augm
[2022-08-14 12:13] VITALS: BP 132/63; PULSE 94; RESP 18; TEMP 37.2; O2SAT 98
== END 2022-08-14 12:14 | disposition home or self-care (01) ==
PROVIDERS: Emergency Provider Nurse Practitioner Family; PCP Internal Medicine Adolescent Medicine
DX: L25.9 Unspecified contact dermatitis, unspecified cause
CPT/HCPCS: 96372; 99212; 99214; G0463

== ENCOUNTER → 2023-03-09 08:38 | Outpatient (CLI) | payer OTHER, SELFPAY ==
[2023-03-09 09:44] LABS: Chloride 104 mmol/L (98-107)
[2023-03-09 09:45] LABS: Sodium 139 mmol/L (136-145)
[2023-03-09 09:47] LABS: Alanine Aminotransferase 39 U/L (12-78); Alkaline Phosphatase 85 U/L (38-126); Aspartate Amino Transferase 37 U/L (14-36); Bilirubin,Total 0.5 mg/dl (0.2-1.3); Blood Urea Nitrogen 13 mg/dl (7-17); Carbon Dioxide 26 mmol/L (22.0-30.0); Cholesterol 148 mg/dl (140-200); Estimated Glomerular Filt Rate 102 ml/min (>60); GFR (African American) 123 ML/MIN (>60); Triglycerides 118 mg/dl (30-150); VLDL Cholesterol 24 mg/dL (0-40)
[2023-03-09 09:48] LABS: Albumin Level 4.3 g/dl (3.5-5.0); Albumin/Globulin Ratio 1.8 (1.1-1.8); Calcium 8.9 mg/dl (8.4-10.2); Chol/HDL Ratio 3.1 (1-3.5); Globulin 2.4 g/dL (1.3-3.2); Glucose 102 mg/dl (74-100); HDL Cholesterol 47 mg/dl (40-60); Total Protein,Serum 6.7 g/dl (6.3-8.2)
== END ==
LOC: LAB 08:41
PROVIDERS: PCP Nurse Practitioner Family; Visit Provider Nurse Practitioner Family
DX: Z00.00 Encounter for general adult medical examination without abnormal findings (principal); E11.9 Type 2 diabetes mellitus without complications; Z79.84 Long term (current) use of oral hypoglycemic drugs
CPT/HCPCS: 36415; 80053; 80061; 83036

== ENCOUNTER 2023-07-02 09:48 | Emergency (ER) | payer OTHER, SELFPAY ==
[2023-07-02 10:05] VITALS: BP 138/75; PULSE 90; RESP 18; TEMP 36.7; O2SAT 97; BMI 29.0
--- NOTE | 2023-07-02 10:10 | ED_ITS ---
Discharge Plan Disposition Patient Disposition: Home, Self-Care Condition: Good Prescriptions Prescriptions: New azithromycin [Zithromax] 250 mg tablet 250 mg PO UD DOSE PK Qty: 6 0RF Rx Instructions: Take two (2) tablets today, then one (1) tablet days #2 thru #5 benzonatate 100 mg capsule 100 mg PO TIDP PRN (Reason: Cough) Qty: 30 0RF methylprednisolone 4 mg Tablets,Dose Pack 4 mg PO DIRECTED 6 Days Qty: 21 0RF Rx Instructions: Take 1 pack as directed for 6 days No Action atorvastatin 40 MG tablet 40 mg PO HS acetaminophen [Tylenol Ex Str Rapid Release] 500 mg Tablet 1,000 mg PO HS fluticasone propionate [Flovent Diskus] 100 mcg/actuation blister with device 1 inh INHALATION DAILY Patient Comments: INHALE 1 PUFF BY MOUTH TWICE DAILY calcium 150 mg Tablet 150 mg PO DAILY peg 3350-electrolytes [GaviLyte-G] 236-22.74-6.74 -5.86 gram recon soln 240 ml PO Q10M Rx Instructions: until fecal effluent is clear- follow mailed instructions Ozempic 0.25 mg or 0.5 mg (2 mg/3 mL) pen injector See Rx Instructions .ROUTE .COMPLEX Patient Comments: INJECT 0.5MG SUBCUTANEOUSLY ONCE WEEKLY Rx Instructions: INJECT 0.5MG SUBCUTANEOUSLY ONCE WEEKLY Referrals Follow up/Referrals: Livan Borja MD [Primary Care Provider] - See instructions Activity Restrictions/Add. Instructions Additional Instructions/Restrictions: Drink plenty of fluids. Take tylenol or ibuprofen for pain or fever. Take the medications as directed. Follow up with your regular doctor. GO TO THE ER FOR ANY WORSENING SYMPTOMS Clinical Impressions Clinical Impression: Pharyngitis Sinusitis Qualifiers: Sinusitis location: frontal Chronicity: acute Recurrence: non-recurrent Qualified Code(s): J01.10 - Acute frontal sinusitis, unspecified Stand Alone Forms Stand Alone Forms: Work/School Release Instructions Patient Instructions: Sinusitis, DI for Sinusitis Discharge ED Provider: Baldo Griffin [facility] General Stated complaint: sore throat, congestion, headache Time Seen by Provider: 07/02/23 10:09 History of Present Illness Provider Complaint: she states that for the past 2 days she has had sore throat, malaise, and sinus congestion. She has been exposed to strep throat in her home. Related Data Home Medications Medication Instructions Recorded Confirmed atorvastatin 40 mg tablet 40 mg PO HS Cholesterol 09/29/19 07/02/23 acetaminophen 500 mg tablet 1,000 mg PO HS Pain 10/10/22 07/02/23 calcium 150 mg tablet 150 mg PO DAILY Supplement 10/10/22 07/02/23 fluticasone propionate 100 1 inh inhalation DAILY Asthma 10/10/22 07/02/23 mcg/actuation blister powder for inhalation (Flovent Diskus) peg 3350-electrolytes 236 240 ml PO Q10M Supplement 10/10/22 10/10/22 gram-22.74 gram-6.74 gram-5.86 gram solution (GaviLyte-G) semaglutide 0.25 mg or 0.5 mg (2 See Rx Instructions .Route .COMPLEX 07/02/23 07/02/23 mg/3 mL) subcutaneous pen injector (Ozempic) Previous Rx's Medication Instructions Recorded azithromycin 250 mg tablet 250 mg PO UD DOSE PK #6 tabs 07/02/23 (Zithromax) benzonatate 100 mg capsule 100 mg PO TIDP PRN Cough #30 caps 07/02/23 methylprednisolone 4 mg tablets in 4 mg PO DIRECTED 6 days #21 tabs 07/02/23 a dose pack Allergies Allergy/AdvReac Type Severity Reaction Status Date / Time alendronate sodium Allergy Verified 07/02/23 10:21 [From Fosamax] amoxicillin [From Augmentin] Allergy Verified 07/02/23 10:21 clavulanic acid Allergy Verified 07/02/23 10:21 [From Augmentin] risedronate sodium Allergy Verified 07/02/23 10:21 [From Actonel] [facility] Disclaimer: The information contained in this section may have been updated after the patient was seen, as this information can be updated by other users. Medical History (Updated 07/02/23 @ 10:56 by Baldo Griffin APRN) Heart murmur Asthma Allergies Surgical History History of cholecystectomy History of tonsillectomy History of appendectomy Hx of nasal septoplasty Hx of sinus surgery History of hysterectomy Family History Other Family history of diabetes mellitus type II Family history of hypertension Family history of mitral valve prolapse Family history of myocardial infarction Social History Smoking Status: Never smoker alcohol intake: never substance use type: denies use current occupational status: employed Travel in the last 8 weeks: Inside the [place] household members: children housing: apartment lives independently: Yes marital status: single education level: master's degree service: No longterm: No caffeine: No special giuliana needs: No agree to transfusion: No do you feel safe at home: Yes victim of physical abuse: No victim of emotional abuse: No victim of sexual abuse: No would you like helpful sources: No ROS Obtained: Yes All systems reviewed & no additional complaints except as documented Constitutional Constitutional: Reports chills and Reports fever(s) Eyes Eyes: Denies eye discharge ENT Ears, Nose, Mouth, and Throat: Reports as per HPI Cardiovascular Cardiovascular: Denies chest pain Respiratory Respiratory: Denies chest congestion and Reports cough Gastrointestinal Gastrointestingal: Reports nausea; Denies abdominal pain, constipation, cramping, diarrhea or vomiting Musculoskeletal Musculoskeletal: Denies arthralgias Integumentary/Breasts Skin/Breast: Denies rash Neurologic Neurologic: Denies paresthesias Physical Exam General General appearance: alert and in no apparent distress Head Head exam: atraumatic, normocephalic and normal inspection Eye Eye exam: Present normal appearance, PERRL and EOMI ENT ENT exam: Present mucous membranes moist and normal external ear exam Expanded ENT Exam TM/Canal exam: Bilateral TM: erythema and bulging Nose exam: Absent sinus tenderness Mouth exam: Present normal external inspection; Absent drooling Teeth exam: Present normal inspection Throat exam: Present tonsillar erythema, tonsillomegaly and tonsillar exudate Neck Neck exam: Present normal inspection, full ROM and trachea midline; Absent tenderness, meningismus or lymphadenopathy Chest Chest inspection: Present normal inspection and symmetric chest wall rise; Absent tenderness Respiratory Respiratory exam: Present normal lung sounds bilaterally; Absent respiratory distress, wheezes, stridor or accessory muscle use Cardiovascular Cardiovascular exam: Present regular rate and normal rhythm; Absent systolic murmur or diastolic murmur Abdominal Exam Abdominal exam: Present soft and normal bowel sounds; Absent distention, tenderness, guarding, rebound or rigidity Extremities Exam Extremities exam: Present normal inspection and normal capillary refill; Absent calf tenderness Back Exam Back exam: Present normal inspection and full ROM; Absent tenderness, CVA tenderness (R) or CVA tenderness (L) Neurological Exam Neurological exam: Present alert, oriented X3 and CN II-XII intact Psychiatric Psychiatric exam: Present normal affect and normal mood Skin Skin exam: Present warm, dry, intact and normal color Medical Decision Making Medical Records Medical records reviewed: No I reviewed the patient's medical records. Carlos Alberto Inquiry Pt receiving controlled substance: No Lab Data Lab results reviewed: Yes I reviewed the patient's lab results.
[2023-07-02 10:38] LABS: UTC Strep Screen (Rapid) Negative (Negative)
[2023-07-02 11:09] VITALS: BP 138/75; PULSE 90; RESP 18; TEMP 36.7; O2SAT 97
== END 2023-07-02 11:09 | disposition home or self-care (01) ==
PROVIDERS: Emergency Provider Nurse Practitioner Family; PCP Internal Medicine Adolescent Medicine
DX: J02.9 Acute pharyngitis, unspecified (principal); J01.10 Acute frontal sinusitis, unspecified; R09.81 Nasal congestion; Z20.818 Contact with and (suspected) exposure to other bacterial communicable diseases
CPT/HCPCS: 87880; 99212; 99214; G0463

== ENCOUNTER 2023-07-24 13:15 | Outpatient (CLI) | payer OTHER, SELFPAY ==
--- NOTE | 2023-07-24 13:20 | XR_ITS ---
FINAL REPORT CLINICAL HISTORY: PAIN OF LEFT SI JOINT x6 weeks FINDINGS: LEFT HIP 2 views of the left hip are obtained. There is no acute fracture or dislocation. Visualized joint spaces are normally aligned. There is no acute soft tissue abnormality. IMPRESSION: No acute bony abnormality. Reviewed, Interpreted and Dictated by Bassem Cohen III, MD Transcribed by Brigitte Tirado Authenticated and [facility]
--- NOTE | 2023-07-24 13:20 | XR_ITS ---
FINAL REPORT CLINICAL HISTORY: LEFT HIP PAIN x6 weeks FINDINGS: SI JOINTS 3 views were obtained. There is no acute fracture or dislocation. There are mild degenerative changes of the hips and left SI joint. Visualized joint spaces are normally aligned. Soft tissues are unremarkable. IMPRESSION: No acute bony abnormality. Reviewed, Interpreted and Dictated by Bassem Cohen III, MD Transcribed by Brigitte Tirado Authenticated and . [facility]
== END 2023-07-24 23:59 | disposition home or self-care (01) ==
LOC: RAD 13:16
PROVIDERS: PCP Internal Medicine Adolescent Medicine; Visit Provider Physician Assistant
DX: M25.552 Pain in left hip (principal); M53.3 Sacrococcygeal disorders, not elsewhere classified
CPT/HCPCS: 72202; 73502

== ENCOUNTER 2023-08-30 08:42 | Outpatient (CLI) | payer OTHER, SELFPAY ==
[2023-08-30 09:26] LABS: Chloride 105 mmol/L (98-107)
[2023-08-30 09:27] LABS: Potassium 4.4 mmoL/L (3.5-5.1); Sodium 140 mmol/L (136-145)
[2023-08-30 09:29] LABS: Alanine Aminotransferase 49 U/L (12-78); Alkaline Phosphatase 90 U/L (38-126); Anion Gap 10.4 mEq/L (5-15); Aspartate Amino Transferase 39 U/L (14-36); Bilirubin,Total 0.6 mg/dl (0.2-1.3); Blood Urea Nitrogen 12 mg/dl (7-17); Carbon Dioxide 29 mmol/L (22.0-30.0); Cholesterol 169 mg/dl (140-200); Estimated Glomerular Filt Rate 85 ml/min (>60); GFR (African American) 103 ML/MIN (>60); Triglycerides 110 mg/dl (30-150); VLDL Cholesterol 22 mg/dL (0-40)
[2023-08-30 09:30] LABS: Albumin Level 4.2 g/dl (3.5-5.0); Albumin/Globulin Ratio 1.7 (1.1-1.8); Calcium 9.4 mg/dl (8.4-10.2); Globulin 2.5 g/dL (1.3-3.2); Glucose 112 mg/dl (74-100); HDL Cholesterol 56 mg/dl (40-60); Total Protein,Serum 6.7 g/dl (6.3-8.2)
[2023-08-30 09:40] LABS: Hemoglobin A1C 6.1 % (4.0-6.0)
== END 2023-08-30 23:59 | disposition home or self-care (01) ==
LOC: LAB 08:44
PROVIDERS: PCP Nurse Practitioner Family; Visit Provider Nurse Practitioner Family
DX: E78.5 Hyperlipidemia, unspecified (principal); E11.9 Type 2 diabetes mellitus without complications; Z79.85 Long-term (current) use of injectable non-insulin antidiabetic drugs
CPT/HCPCS: 36415; 80053; 80061; 83036

== ENCOUNTER 2023-12-12 07:42 | Outpatient (CLI) | payer OTHER, SELFPAY ==
[2023-12-12 07:59] LABS: Basophils # 0.1 K/mm3 (0-0.2); Basophils % 0.7 % (0.1-2.0); Eosinophils # 0.1 K/mm3 (0.0-0.4); Eosinophils % 1.5 % (0.1-12.0); Hemoglobin 13.5 g/dL (12.2-16.2); Lymphocytes % 26.5 % (10-50); Mean Corpuscular HGB Conc 32.1 g/dL (31.8-35.4); Mean Corpuscular Hemoglobin 30.1 pg (27.0-31.2); Mean Corpuscular Volume 93.7 fl (81-99); Mean Platelet Volume 8.4 fl (7.4-10.4); Monocytes # 0.5 K/mm3 (0.1-1.0); Monocytes % 6.6 % (1.7-9.3); Neutrophils # 4.9 K/mm3 (1.8-7.8); Neutrophils % 64.7 % (37.0-80.0); Platelet Count 326 K/mm3 (142-424); Red Blood Count 4.48 M/mm3 (4.20-5.40); Red Cell Distribution Width 14.1 % (11.5-17.5); White Blood Count 7.6 K/mm3 (4.8-10.8)
[2023-12-12 08:35] LABS: Albumin Level 4.4 g/dl (3.5-5.0); Chloride 101 mmol/L (98-107); Potassium 4.3 mmoL/L (3.5-5.1); Sodium 139 mmol/L (136-145)
[2023-12-12 08:38] LABS: Alanine Aminotransferase 36 U/L (12-78); Albumin/Globulin Ratio 1.8 (1.1-1.8); Alkaline Phosphatase 85 U/L (38-126); Anion Gap 12.3 mEq/L (5-15); Aspartate Amino Transferase 31 U/L (14-36); Bilirubin,Total 0.6 mg/dl (0.2-1.3); Blood Urea Nitrogen 12 mg/dl (7-17); Calcium 9.7 mg/dl (8.4-10.2); Carbon Dioxide 30 mmol/L (22.0-30.0); Estimated Glomerular Filt Rate 102 ml/min (>60); GFR (African American) 123 ML/MIN (>60); Globulin 2.4 g/dL (1.3-3.2); Glucose 112 mg/dl (74-100); Total Protein,Serum 6.8 g/dl (6.3-8.2)
[2023-12-12 09:07] LABS: Hemoglobin A1C 6.7 % (4.0-6.0)
[2023-12-12 09:09] LABS: Thyroid Stimulating Hormone 1.78 uIU/mL (0.465-4.68)
== END 2023-12-12 23:59 | disposition home or self-care (01) ==
LOC: LAB 07:44
PROVIDERS: PCP Internal Medicine Adolescent Medicine; Visit Provider Nurse Practitioner Family
DX: Z00.00 Encounter for general adult medical examination without abnormal findings (principal); R63.5 Abnormal weight gain; E11.9 Type 2 diabetes mellitus without complications; Z79.85 Long-term (current) use of injectable non-insulin antidiabetic drugs
CPT/HCPCS: 36415; 80050; 80053; 83036; 84443; 85025

== ENCOUNTER 2024-01-30 08:20 | Outpatient (CLI) | payer OTHER, SELFPAY ==
--- NOTE | 2024-01-30 08:26 | MM_ITS ---
PROCEDURE INFORMATION: Exam: MG Bilateral Screening 3D Mammography Exam date and time: 01/30/2024 8:29 AM Age: 63 years old Clinical indication: Screening examination TECHNIQUE: Imaging protocol: Bilateral Screening tomosynthesis and 2D mammography including computer-aided detection (CAD) when performed. COMPARISON: MG MM DIG SCREENING MAMM BI W/CAD 06/30/2022 9:53 AM FINDINGS: MAMMOGRAPHY: Breast composition: There are scattered areas of fibroglandular density. Mass: No suspicious masses. Architectural distortion: None. Calcifications: No suspicious calcifications. Asymmetric density: None. Skin thickening: None. Axillary adenopathy: None. IMPRESSION: No mammographic evidence of malignancy. Annual screening is recommended unless otherwise clinically indicated. ASSESSMENT: BI-RADS Category 1: Negative.
--- NOTE | 2024-01-30 08:26 | XR_ITS ---
FINAL REPORT TECHNIQUE: Bone densitometry calculations of the lumbar spine and left hip were obtained. CLINICAL HISTORY: SCREENING COMPARISON: None FINDINGS: Using L1-4, the bone mineral density of the spine is 0.936 g/cm2, corresponding to T-score of -1.0. Using the left hip, the bone mineral density of the femoral neck is 0.806 g/cm2, corresponding to a T-score of -1.1. Using the right hip, the bone mineral density of the femoral neck is 0.700 g/cm?, corresponding to a T-score of -1.3. NOTE: T-score: Standard deviation compared with peak bone mass of young adult mean. *Following the recommendations of the International Society of Bone densitometry, classification of hip BMD is based on the lower of two T-scores; total hip or femoral neck. IMPRESSION: Diminished bone mineral density of the bilateral hips consistent with osteopenia. Normal bone mineral density of the lumbar spine. Reviewed, Interpreted and Dictated by Robson Rowe MD Transcribed by Suzanne Almodovar Authenticated and [facility]
== END 2024-01-30 23:59 | disposition home or self-care (01) ==
LOC: RAD 08:22
PROVIDERS: PCP Internal Medicine Adolescent Medicine; Visit Provider Nurse Practitioner Family
DX: Z12.31 Encounter for screening mammogram for malignant neoplasm of breast (principal); Z78.0 Asymptomatic menopausal state
CPT/HCPCS: 77063; 77067; 77080

== ENCOUNTER 2025-02-11 15:47 | Outpatient (CLI) | payer OTHER, SELFPAY ==
--- OUTSIDE RECORDS SUMMARY | 2025-02-11 15:49 | XMS_ITS | Clinical Summary ---
Author Organization [facility] Address [address] [place] [address] Phone Care Team Providers Care International Recruiter Name Role Phone True Ro APRN Primary Care Physician [phone] Conditions or Problems Problem Name Problem Code Onset Date Status Entry Date Provider Comment Standard Description Annotate Body mass index (BMI) 29.0-29.9; adult Z68.29 (ICD-10-CM ) 03/25 Active 03/25 True Ro APRN Body mass index [BMI] 29.0-29.9, adult Counseling for nutrition Z71.3 (ICD-10-CM ) 03/25 Inactive 03/25 True Ro APRN Dietary counseling and surveillance Hyperglycemi a 74115633 (SNOMED CT) 03/25 Active 03/25 True Ro APRN Hyperglycemia GERD [id number] (SNOMED CT) 03/25 Active 03/25 True Ro APRN Gastroesophageal reflux disease Medications Medication Instructions Start Date Stop Date Generic Name [facility] Provider FLOVENT HFA 110 MCG/ACT INHALATION AEROSOL TAKE 2 INHALATIONS TWICE A DAY FLUTICASONE PROPIONATE HFA 49730003207 True Ro APRN FLONASE ALLERGY RELIEF 50 MCG/ACT SUSP USE 2 SPRAYS IN EACH NOSTRIL 1 TIME A DAY FLUTICASONE PROPIONATE [id number] True Ro APRN PROAIR HFA 108 (90 BASE) MCG/ACT INHALATION AEROSOL SOLUTION USE 2 INHALATIONS 4 TIMES A DAY NEEDED FOR WHEEZING ALBUTEROL SULFATE [id number] True Ro APRN QVAR REDIHALER 80 MCG/ACT AERB TWO INHALATIONS BY MOUTH IN THE MORNING AND TWO AT NIGHT 2018/11/ 13 BECLOMETHASONE DIPROP HFA [id number] True Ro VELOCITY SHOOTER Medications Administered No information available. Allergies, Adverse Reactions, Alerts Allergy Name Reaction Description Start Date Severity Statu s Provider FASOMAX JOINT PAIN Moderate Active True Sm ith VELOCITY SHOOTER ACTONEL JOINT PAIN Moderate Active True Sm ith VELOCITY SHOOTER Results Date Name Value Unit Range Flag Description Lab Report: LIPID PANEL WITH REFLEX TO DIRECT LDL, LIPID PANEL WITH REFL ... HGBA1C 6.7 % OF TOTAL HGB % <5.7 H Hemoglobin A1c/Hemoglobin, total in Blood - % TSH 1.29 u[iU]/mL N Thyrotropin [Units/volume] in Serum or Plasma BASO % MANU 0.5 % N basophils as percent of blood leukocytes, manual count EOS % MANU 0.7 % N eosinophil s as percent of blood leukocytes, manual count MONOCYTE % 8.9 % N Monocytes/ 100 leukocytes in Blood by Automated count LYMPH% P BLD 24.0 % N lymphocy luis as percent of blood leukocytes PMN % 65.9 % N Neutrophils/1 00 leukocytes in Blood by Automated count ABS BASOS 44 {Cells}/u L 0-200 N Basophils [#/volume] in Blood ABS EOS 61 {Cells}/u L 15-500 N Eosinophils [#/volume] in Blood ABS MONOS 774 {Cells}/u L 200-950 N Monocytes [#/volume] in Blood ABSLYMPHCT 2088 {Cells}/u L 850-3900 N Lymphocytes [#/volume] in Blood ABS NEUTROPH 5733 CELLS/UL 10*3/uL 4766-1925 N Neutrophils [#/volume] in Blood MPV 11.1 fL 7.5-12.5 N Platelet jose n volume [Entitic volume] in Blood by Josef PLATELETK/UL 354 THOUSAND/UL 10*3/uL 140-400 N platelet count RDW 13.2 % 11.0-15.0 N Erythrocyte distribution width [Ratio] by Automated count OL-MCHC 33.3 g/dL 32.0-36.0 N mean corpus cular hemoglobin concentration, rbc MCH 27.8 pg 27.0-33.0 N MCH [Entiti c mass] by Automated count MCV 83.7 fL 80.0-100.0 N MCV [Entit ic volume] by Automated count HCT 40.0 % 35.0-45.0 N Hematocrit [Volume Fraction] of Blood by Automated count HGB 13.3 g/dL 11.7-15.5 N Hemoglobin [Mass/volume] in Blood RBC M/UL 4.78 MILLION/UL 10*6/uL 3.80-5.10 N re d blood count WBC CT BLOOD 8.7 10*3/uL 3.8-10.8 N leukocy te count, blood SGPT (ALT) 22 U/L 6-29 N Alanine aminotransferase [Enzymatic activity/volume] in Serum or Plasma SGOT (AST) 18 U/L 10-35 N Aspartate aminotransferase [Enzymatic activity/volume] in Serum or Plasma ALK PHOS 84 U/L 33-130 N Alkaline deepthi sphatase [Enzymatic activity/volume] in Blood BILI TOTAL 0.3 mg/dL 0.2-1.2 N Bilirubin. total [Mass/volume] in Serum or Plasma A/G RATIO 1.7 (calc) 1.0-2.5 N Albumin/ Globulin [Mass Ratio] in Serum or Plasma GLOBULIN TOT 2.6 G/DL (CALC) g/dL 1.9-3.7 N Globulin [Mass/volume] in Serum ALBUMIN EOP 4.5 g/dL 3.6-5.1 N Albumin [ Mass/volume] in Serum or Plasma by Electrophoresis PROTEIN, TOT 7.1 g/dL 6.1-8.1 N Protein [Mass/volume] in Serum or Plasma CALCIUM 9.4 mg/dL 8.6-10.4 N Calcium [Moles/volume] in Serum or Plasma CO2 31 mmol/L 20-32 N Carbon dioxid e, total [Moles/volume] in Venous blood CHLORIDE BLD 102 mmol/L 98-110 N chloride , blood POTASSIUM 4.3 mmol/L 3.5-5.3 N Potassium [Moles/volume] in Serum or Plasma SODIUM 140 mmol/L 135-146 N Sodium [Moles /volume] in Serum or Plasma BUN/CREAT NOT APPLICABLE (calc) 6-22 Urea nitrogen/Creatinine [Mass Ratio] in Serum or Plasma EGFR IF AFA 98 mL/min/1. 73m2 >OR = 60 N Glomerular filtratio n rate/1.73 sq M.predicted among blacks [Volume Rate/Area] in Serum, Plasma or Blood by Creatinine-based formula (MDRD) EGFR 84 mL/min/1. 73m2 >OR = 60 N Glomerular filtratio n rate/1.73 sq M.predicted [Volume Rate/Area] in Serum, Plasma or Blood by Creatinine-based formula (MDRD) CREATININE 0.79 mg/dL 0.50-1.05 N Creatini ne [Mass/volume] in Serum or Plasma BUN 16 mg/dL 7-25 N Urea nitrogen [Mass/volume] in Serum or Plasma GLUCOSE SER 109 mg/dL 65-99 H Glucose [ Mass/volume] in Serum or Plasma NON-HDL CHOL 163 MG/DL (CALC) mg/dL <130 H cholesterol, non -HDL, total CHOL/HDL % 3.8 (calc) <5.0 N cholest willy/HDL ratio, serum, percent LDL 137 MG/DL (CALC) mg/dL H Cholesterol in L DL [Mass/volume] in Serum or Plasma - mg/dL TRIGLYC TOT 133 mg/dL <150 N Triglycer melva [Mass/volume] in Serum or Plasma - mg/dL HDL 59 mg/dL >50 N Cholesterol i n HDL [Mass/volume] in Serum or Plasma - mg/dL CHOLESTEROL 222 mg/dL <200 H Cholester ol [Mass/volume] in Serum or Plasma - mg/dL Plan of Care Type Date Detail Referral GI [facility], [address], Xrays, Ultrasound, Labs, MRI, Bar[place], [place], [address] Referral excluded fr om report: Pending order T1 CBC with diff Pending order T1 CMP Pending order T1 Lipid Panel Pending order T1 TSH reflex to free T4 Pending order T1 HGBA1c Patient education Patient Educat ion Given Procedures Code Procedure Name Date Entry Date [id number] Medication Reconciliation CPT-3074F Most recent systolic blood pressure <130 mm Hg CPT-3078F Most recent diastoli c blood pressure <80 mm Hg [facility] Gastroenterology 01/23 [facility] 6399 T1 CBC with diff [facility] [id number] T1 CMP [facility] 55715 T1 Lipid Panel [facility] 71102 T1 TSH reflex to free T4 201 10/21/12 [facility] 496 T1 HGBA1c Vital Signs Date Name Value Unit Description BMI (Body Mass Index) 29.32 kg/m2 Bod y Mass Index (Ratio) Body Temperature 98.5 [degF] temperat ure E&M Body Temperature 36.94 Cate temperat ure in centigrade E&M BP Diastolic 74 mm[Hg] blood pressu re, diastolic BP Systolic 117 mm[Hg] blood pressur e, systolic BSA (Body Surface Area) 1.74 b arabella surface area Heart Rate 77 /min pulse rate Height 61 [in_us] height E&M Height 154.94 cm height in cent imeters E&M Respiratory Rate 15 /min respirat ory rate E&M Weight Measured 154.6 [lb_av] weight E& M Weight Measured 154.6 [lb_av] weight E& M Weight Measured 70.27 kg weight in kilograms E&M Immunizations No information available. Advance Directives No information available.
--- OUTSIDE RECORDS SUMMARY | 2025-02-11 15:50 | XMS_ITS | Clinical Summary ---
Author Organization [facility] yste Address [address] [place] [address] Care Team Providers Care Bobcat Driver/Labor Name Role Phone Unavailable Primary Care Provider Unavailabl e Family History Medical History Relation Name Comments Breast cancer Neg Hx Endometrial cancer Neg Hx Ovarian cancer Neg Hx Social History Tobacco Use Types Packs/Day Years Used Date Smoking Tobacco: Never Assessed Abuse Screen Answer Date Recorded Unsafe at Home or Work/School Not on file Feels Threatened by Someone? Not on file 11/2022 Does Anyone Keep You from Co ntacting Others or Doint Things Outside the Home? Not on file 12/19/2022 Physical Sign of Abuse Present Not on file 1 Housing Stability Answer Date Recorded Current Living Arrangements Not on file 11/2022 Potentially Unsafe Housing Conditions Not on roney e 12/19/2022 Family and Community Support Answer Teodoro e Recorded Help with Day-to-Day Activities Not on file 12/19/2022 Lonely or Isolated Not on file 12/19/2022 Employment Answer Date Recorded Do you want help finding or keeping work or a nicholas b? Not on file 12/19/2022 Disabilities Answer Date Recorded Concentrating, Remembering, or Making Decisions Difficulty Not on file 12/19/2022 Doing Errands Independently Difficulty Not on fi le 12/19/2022 Education Answer Date Recorded Help with school or training? Not on file Preferred Language Not on file 12/19/2022 Comments No Sex and Gender Information Value Date Recorded Sex Assigned at Not on file Legal Sex Female 12:17 PM EDT Gender Identity Not on file Sexual Orientation Not on file Plan of Treatment Health Maintenance Due Date Last Done Comments Annual Gynecologic Pelvic an d Breast Exam 1962 TDAP/TD VACCINES (1 - Tdap) 1981 COLOGUARD 10/26/2007 COLON CANCER SCREENING 5 YEA R SIGMOIDOSCOPY 10/26/2007 COLONOSCOPY 10/26/2007 COLORECTAL CANCER SCREENING 10/26/2007 CT COLONOGRAPHY 10/26/2007 FECAL OCCULT BLOOD TEST 10/26/2007 FIT Testing (1 year) 10/26/2007 Pneumococcal Vaccine 50+ (1 of 1 - PCV) 2012 ZOSTER VACCINE (1 of 2) 2012 ANNUAL PHYSICAL 04/03/2018 HEPATITIS C SCREENING 04/03/2018 MAMMOGRAM 04/25/2019 04/25/2017, 02/11, 01/26/2015, Additional history exists INFLUENZA VACCINE 10/11/2024 Procedures Procedure Name Priority Date/Time Associated Diagnosis Comments MAMMO SCREENING DIGITAL TOMOSYNTHESIS BILATERAL W CAD Routine 04/25/2017 8:42 AM EST Visit for screening mammogram from Last 3 Months or Most Recently Relevant to Health Maintenance Results * Mammo Screening Digital Tomosynthesis Bilateral With CAD (04/25/2017 8:42 AM EST) Anatomical Region Laterality Modality Breast N/A Mammography 04/26/2017 3:44 PM EST Impressions 04/26/2017 3:50 PM EST Benign screening mammogram. RECOMMENDATION: Continue annual screening mammography. BI-RADS CATEGORY 2, BENIGN. CAD was utilized. The standard false-negative rate of mammography is between 10% and 25%. Complex patterns or increased breast density will markedly elevate the false-negative rate of mammography. A letter, in lay terminology, with the results of this exam will be mailed to the patient. This report was finalized on 04/26/2017 3:[address] Mary Hill MD. Narrative 04/26/2017 3:50 PM EST BILATERAL SCREENING MAMMOGRAM WITH TOMOSYNTHESIS: HISTORY: No personal or significant family history of breast cancer and no focal breast complaints at the time of screening mammography. TECHNIQUE: Low dose full field digital breast tomosynthesis imaging was performed with 2D and 3D acquisitions. COMPARISON: 03/01/2016, 01/26/2015, 12/10/2013, 12/07/2012, and 06/10/2011 FINDINGS: There are scattered areas of fibroglandular density. The bilateral fibroglandular pattern is stable. There is a stable 0.5 cm oval mass in the left 12:00/subareolar region. There are no suspicious masses, worrisome calcifications, nonsurgical areas of architectural distortion, or other secondary signs of malignancy. Dottie Roberts MD IMG MAMMOGRAPHY ORDERABL ES Final Result from Last 3 Months or Most Recently Relevant to Health Maintenance Insurance [facility]
--- OUTSIDE RECORDS SUMMARY | 2025-02-11 15:50 | XMS_ITS | Encounter Summary ---
Author Organization [facility] Address [address] [place] [address] Care Team Providers Care Tower Excavator Operator Name Role Phone Maria G Crawford MD Primary Care Provider [phone] Berta Painter MD Primary Care Provider [phone] Reason for Visit * Reason Onset Date Comments Med Refill 08/28/2020 Encounter Details Date Type Department Care Team (Late st Contact Info) Description 08/26/2020 Refill [facility] [address] [place] [address] Maria G Crawford MD [address] [address] Social History Tobacco Use Types Packs/Day Years Used Date Smoking Tobacco: Never Comments Unknown Sex and Gender Information Value Date Recorded Sex Assigned at Female 04/05/2021 9:16 AM EST Legal Sex Female 7:27 PM EDT Gender Identity Female 04/05/2021 9:16 AM EST Sexual Orientation Not on file documented as of this encounter Miscellaneous Notes * Telephone Encounter - Alvina Murillo RN - 08/28/2020 1:43 PM EDT Renewed flovent 100mcg * Telephone Encounter - Ke Mckeon - 08/28/2020 12:52 PM EDT Patient just called refill center. Her Flovent dose is 100 mcg, not the 250. She states that the 250 dose is too strong. She is also nearly out of medication and needs this to be called in today if at all possible. * Telephone Encounter - Alvina Murillo RN - 08/28/2020 10:16 AM EDT Renewed flovent 250 per protocol * Telephone Encounter - Alvina Murillo RN - 08/28/2020 10:[address] Crawford's recent office note from Apr 2020, patient is to continue flovent 250. Renewed per protocol * Telephone Encounter - Harmony Babin - 08/27/2020 7:37 PM EDT Refill request does not meet protocol. Sending to clinic triage for further review. Additional info: there are 2 different strengths of Flovent Diskus on med list and most recent clinic note stated for patient to start the 250 mcg; please assess. documented in this encounter Plan of Treatment Not on file documented as of this encounter Visit Diagnoses Not on filedocumented in this encounter Care Teams Tower Excavator Operator Relationship Specialty Start Date End Date Maria G Crawford MD [address] [address] PCP - General 07/24/20 08/11/21 Berta Painter MD [address] [address] PCP - General Family Medicine 08/12/21 05/14/24 documented as of this encounter
--- OUTSIDE RECORDS SUMMARY | 2025-02-11 15:50 | XMS_ITS | Clinical Summary ---
Author Organization [facility] Address [address] [place] [address] Care Team Providers Care Sorting Machine Attendant Name Role Phone Unavailable Primary Care Provider Unavailabl e Allergies Active Allergy Reactions Criticality Noted Date Comments Alendronate Unknown - Patient st ates they do not know rxn details Low 10/14/2008 Amoxicillin-Pot Clavulanate Unknown - Pa tient states they do not know rxn details Low 07/15/2011 Dextromethorphan Other - please docum ent in the comment field Low 02/07/2006 Erythromycin Unknown - Patient st ates they do not know rxn details Low 06/08/2018 Erythromycin Base Unknown - Patient st ates they do not know rxn details Low 09/25/2020 Risedronate Unknown - Patient st ates they do not know rxn details Low 10/14/2008 Medications acetaminophen (Tylenol Extra Strength) 500 MG tablet 1 (one) time each day. 9 Active Multiple Vitamins-Iron tablet 9 Active nitrofurantoin , macrocrystal-m onohydrate, (Macrobid) 100 MG capsule TK 1 C PO BID FOR 10 DAYS 0 Active triamcinolone (Kenalog) 0.5 % cream triamcinolone acetonide 0.5 % topical cream APPLY A THIN LAYER TO THE AFFECTED AREA(S) BY TOPICAL ROUTE 2 TIMES PER DAY Active cyanocobalamin (Vitamin B-12) 500 MCG tablet TAKE 1 TABLET DAILY. 9 Active ascorbic acid (Vitamin C) 125 mg chewable tablet 9 Active albuterol (ProAir HFA) 108 (90 Base) MCG/ACT inhaler if needed. 9 Active Calcium 200 MG tablet calcium Active pantoprazole (ProtoNix) 20 MG EC tablet TAKE 1 TABLET BY MOUTH DAILY 90 tablet 3 1 Active fluticasone (Flonase) 50 MCG/ACT nasal spray INSTILL 1 SPRAY IN EACH NOSTRIL DAILY 16 g 6 1 Active gabapentin (Neurontin) 100 MG capsuleIndicat ions:Nerve pain Take 1-2 tabs at bedtime as needed for nerve pain. 60 capsule 2 2 Active metFORMIN (Glucophage) 500 MG tablet TAKE 1 TABLET(500 MG) BY MOUTH TWICE DAILY WITH MEALS 180 tablet 1 2 Active atorvastatin (Lipitor) 40 MG tablet TAKE 1 TABLET(40 MG) BY MOUTH EVERY NIGHT 90 tablet 2 2 Active Flovent Diskus 100 MCG/BLIST diskus inhaler INHALE 1 PUFF BY MOUTH TWICE DAILY 60 each 2 2 Active diclofenac (Voltaren) 1 % topical gel Place 1-2 g on the skin 2 (two) times a day. 100 g 1 2 Active Active Problems Problem Noted Date Diagnosed Date Lower back pain 04/29/2020 Lumbar radiculopathy 04/17/2020 Hyperkalemia 12/23/2019 Tendinitis of hand 03/29/2019 GERD (gastroesophageal reflux disease) 9 Chronic hand pain 12/22/2018 Diabetes mellitus 06/17/2018 Asthma 06/08/2018 Allergic rhinitis 06/08/2018 Benign lipomatous tumor 12/31/2015 Mild persistent asthma 10/09/2015 Asthma with acute exacerbation 01/21/2015 Resolved Problems Problem Noted Date Diagnosed Date Resolved Date ARNIE (acute kidney injury) 12/18/2019 Immunizations Immunization Administration Dates Next Due Hep A / Hep B 11/16/2011,06/16/2011,05/16/2011 Influenza, injectable, quadrivalent 12/11/2016 Influenza, injectable, quadr ivalent, preservative free 12/16/2019,12/19/2018 MMR 07/15/2011 PPD Skin Test (TB Skin Test) 07/22/2005 [employer] COVID-19 Vac cine (Purple Cap) 12+ 07/08/2020,06/10/2020 Pneumococcal Conjugate PCV 13 09/17/2018 Tdap 08/09/2011,10/15/2007 Zoster, Recombinant 04/05/2021,03/29/2019 Family History Medical History Relation Name Comments Coronary artery disease Father Diabetes Father Heart attack Father Stroke Father Mitral valve prolapse Mother Osteoarthritis Mother Osteoporosis Mother Diabetes Sister Relation Name Status Comments Father Mother Sister Social History Tobacco Use Types Packs/Day Years Used Date Smoking Tobacco: Never Smokeless Tobacco: Never Alcohol Use Standard Drinks/Week Comments Never 0 (1 standard drink = 0.6 oz pur e alcohol) PHQ-2 Answer Date Recorded Patient Health Questionnaire-2 Score 0 04/05/2021 Comments Unknown Sex and Gender Information Value Date Recorded Sex Assigned at Female 04/05/2021 9:16 AM EST Legal Sex Female 7:27 PM EDT Gender Identity Female 04/05/2021 9:16 AM EST Sexual Orientation Not on file Last Filed Vital Signs Vital Sign Reading Time Taken Comments Blood Pressure 130/81 04/05/2021 9:21 AM EST Pulse 85 04/05/2021 9:16 AM EST Temperature 37.1 C (98.7 F) 04/05/2021 9:16 AM EST Respiratory Rate 16 10/26/2020 12:36 PM EDT Oxygen Saturation 98% 04/05/2021 9:16 AM EST Inhaled Oxygen Concentration - - Weight 69.5 kg (153 lb 3.2 oz) 04/05/2021 9:16 A M EST Height 154.9 cm (5' 1 ) 04/05/2021 9:16 AM EST Body Mass Index 28.95 04/05/2021 9:16 AM EST Plan of Treatment Health Maintenance Due Date Last Done Comments [facility]-Depression Screening 1962 [facility]-/Child/Adol SDOH Screenings 1962 [facility]- SDOH Screenings 1980 [facility]-Adult SDOH Screenings 1980 [facility]-Pap Smear 10/26/1983 [facility]-Cervical Cancer Screening 1992 [facility]-HPV/Cotest 1992 CT Colonography 10/26/2007 Colonoscopy 10/26/2007 FIT-DNA 10/26/2007 FIT 10/26/2007 FOBT 10/26/2007 Sigmoidoscopy 10/26/2007 [facility]-Colorectal Cancer Screening 10/26/2007 [facility]-Pneumococcal Vaccine: 50+ Years (2 of 2 - PCV20 or PCV21) 09/18/2019 09/17/2018 [facility]-DTaP,Tdap,and Td Vaccines (3 - Td or Tdap) 08/08/2021 08/09/2011, 10/15/2007, 05/14/1996 [id number] Vaccine (4 - season) 2024 03/19/2021, 07/08/2020, 06/10/2020 [facility]-Influenza Vaccine (#1) 11/11/202412/17, 12/16/2019, 12/19/2018, Additional history exists [facility]-RSV Vaccine: 60+ Years or (1 - 1-dose 75+ series) 2037 [facility]-Hepatitis A Vaccines Aged Out 012, 06/16/2011, 05/16/2011 No longer eligible based on patient's age to complete this topic [facility]-Diabetes: Hemoglobin A1C Discontinued 04/05/2021, 09/25/2020, 09/04/2019, Additional history exists [facility]-Zoster Vaccines Completed 04/05/2021, 0 HPV Vaccines Aged Out No longer eligi ble based on patient's age to complete this topic [facility]-HIB Vaccines Aged Out No longer e ligible based on patient's age to complete this topic [facility]-IPV Vaccines Aged Out No longer e ligible based on patient's age to complete this topic [facility]-Rotavirus Vaccines Aged Out No lo nger eligible based on patient's age to complete this topic Procedures Procedure Name Priority Date/Time Associated Diagnosis Comments POCT GLYCOSYLATED HEMOGLOBIN (HGB A1C) Routine 04/05/2021 10:50 AM EST Type 2 diabetes mellitus with hyperglycemia, without long-term current use of insulin ([facility]) from Last 3 Months or Most Recently Relevant to Health Maintenance Results * POCT glycosylated hemoglobin (Hb A1C) docked device (04/05/2021 10:50 AM EST) POCT Hemoglobin A1C 6.5 4.4 - 6.6 % [facility] Kit Lot Number N/a [facility] Kit Expiration Date N/A [facility] Blood Venous blood specimen / Unknown 04/05/2021 10:50 AM EST Miesha Goetz MD POINT OF CARE TEST ENTER/E DIT ORDERABLES Final Result Performing Organization Address City/State/[facility] Co de Phone Number [facility] [address] [place] [phone] from Last 3 Months or Most Recently Relevant to Health Maintenance Insurance [employer] Advance Directives Documents on File Type Date Recorded Patient [employer] Advance Directives and Living Will 10/26/2020 Authoriztions & Agreements
--- NOTE | 2025-02-11 16:01 | MM_ITS ---
PROCEDURE INFORMATION: Exam: MG Bilateral Screening 3D Mammography Exam date and time: 02/11/2025 4:01 PM Age: 64 years old Clinical indication: Screening examination TECHNIQUE: Imaging protocol: Bilateral Screening tomosynthesis and 2D mammography including computer-aided detection (CAD) when performed. COMPARISON: 1. MG MM DIG SCREENING MAMM BI W/CAD 01/30/2024 8:29 AM 2. MG MM DIG SCREENING MAMM BI W/CAD 06/30/2022 9:53 AM FINDINGS: MAMMOGRAPHY: Breast composition: There are scattered areas of fibroglandular density. Mass: None. Architectural distortion: None. Calcifications: No suspicious calcifications. Asymmetric density: None. Skin thickening: None. Axillary adenopathy: None. IMPRESSION: No mammographic evidence of malignancy. Annual screening is recommended unless otherwise clinically indicated. ASSESSMENT: BI-RADS Category 1: Negative.
== END 2025-02-11 23:59 | disposition home or self-care (01) ==
LOC: RAD 15:48
PROVIDERS: PCP Internal Medicine Adolescent Medicine; Visit Provider Nurse Practitioner Family
DX: Z12.31 Encounter for screening mammogram for malignant neoplasm of breast (principal); R92.323 Mammographic fibroglandular density, bilateral breasts
CPT/HCPCS: 77063; 77067